=== PATIENT | female | born 1950 | race Caucasian/White ===

== ENCOUNTER 2024-01-19 08:47 | Outpatient (CLI) | payer MEDICARE | END 2024-01-19 08:48 | disposition home or self-care (01) | LOC: CSHMAMMO 08:47 | PROVIDERS: ATTEND Family Medicine | DX: Z12.31 Encounter for screening mammogram for malignant neoplasm of breast (principal); Z91.89 Other specified personal risk factors, not elsewhere classified | CPT/HCPCS: 77063; 77067 ==

== ENCOUNTER 2025-01-25 08:45 | Outpatient (CLI) | payer MEDICARE | END 2025-01-25 08:46 | disposition home or self-care (01) | LOC: CSHMAMMO 08:45 | PROVIDERS: ATTEND Student in an Organized Health Care Education/Training Program | DX: Z12.31 Encounter for screening mammogram for malignant neoplasm of breast (principal); Z91.89 Other specified personal risk factors, not elsewhere classified | CPT/HCPCS: 77063; 77067 ==